=== PATIENT | male | born 1985 | race Caucasian/White ===

== ENCOUNTER 2020-04-27 16:30 | Outpatient (REF) | payer MEDICAID, SELFPAY | END 2020-04-27 16:31 | disposition home or self-care (01) | LOC: HO.LAB 16:30 | PROVIDERS: Visit Provider Internal Medicine | DX: Z20.828 Contact with and (suspected) exposure to other viral communicable diseases (principal) | CPT/HCPCS: C9803; U0003 ==

== ENCOUNTER 2021-01-21 14:00 | Outpatient (REF) | payer MEDICAID, SELFPAY | END 2021-01-21 14:01 | disposition home or self-care (01) | LOC: HO.HMGCLDS 14:00 | PROVIDERS: Visit Provider Internal Medicine | DX: Z20.822 Contact with and (suspected) exposure to COVID-19 (principal) | CPT/HCPCS: C9803; U0003; U0005 ==

== ENCOUNTER 2021-03-03 07:39 | Emergency (ER) | payer OTHER, MEDICAID, SELFPAY ==
--- NOTE | 2021-03-03 08:23 | ED.BACK ---
HPI - Back Pain/Injury General Chief Complaint: Extremity Problem Stated Complaint: back pain - work injury Time Seen by Provider: 03/03/21 08:10 Source: patient Mode of arrival: ambulatory Limitations: no limitations History of Present Illness HPI Narrative: 35 y/o male with no medial history presents to the ER with right middle back pain after he lifted a stove yesterday. He reports it dropping off the handtruck and he went to try to catch it and pulled the right side of his back. His boss sent him home and told him to come to the ER if no improvement in the pain. He reports pain is worse with movement and deep breaths, better with rest. He took something for pain his had but does not know the name of it. MD elicited complaint: back pain and back injury Onset (ago): day(s) (1) Timing: intermittent Severity: moderate Pain scale (0-10): 7 Similar Symptoms Previously: No Quality: aching and spasming Location: right lower back and right upper back Radiation: none Exacerbating factors: movement, deep breaths and coughing/sneezing Relieving factors: immobilization Context: while lifting and turning/twisting Associated symptoms: denies other symptoms Work related injury: Yes Related Data Previous Rx's Medication Instructions Recorded cyclobenzaprine 10 mg tablet 10 mg PO TID PRN #10 tab 03/03/21 ibuprofen 600 mg tablet 600 mg PO Q8H PRN #14 tab 03/03/21 lidocaine 5 % topical patch 1 patch TOPICAL DAILY #15 ea 03/03/21 (Lidoderm) Allergies Allergy/AdvReac Type Severity Reaction Status Date / Time No Known Allergies Allergy Unverified 02/27/20 18:53 [No Known Allergies*] Review of Systems Review of Systems: Constitutional: No Fever, No Chills Cardiovascular: No Chest Pain, No SOB Respiratory: No Cough, No Sputum Gastrointestinal: No Nausea, No Vomiting, No abdominal Pain Genitourinary: No Dysuria, No Urinary Frequency, No Hematuria Musculoskeletal: No joint pain, + Myalgias Skin: No Skin Lesions, No rash Neuro: No Weakness, No Numbness Heme/Lymph: No Bruising PMFSH Social History Social History Alcohol intake: never Patient Tobacco Use Status: Never used Tobacco Use of substances other than those prescribed or required for medical reasons: No Advance Directives: No Physical Exam Vital Signs: Vital Signs: Last Vital Signs Temp 97.9 F 03/03/21 08:24 Pulse 55 03/03/21 08:24 Resp 17 03/03/21 08:24 BP 116/79 03/03/21 08:24 Pulse Ox 100 03/03/21 08:24 Body Mass Index 22.8 Appearance: Alert. Oriented X3. No acute distress. HEENT: normal inspection Neck: Normal inspection. Neck supple. CVS: Normal heart rate and rhythm. Pulses normal. Respiratory: No respiratory distress. Breath sounds normal. Abdomen: Soft and nontender. +BS x4 Back/: normal inspection, normal ROM, tenderness and spasm of the right sided soft tissues with palpable spasm of the latissimus dorsi Skin: Skin warm and dry. Normal skin color. Normal skin turgor. No rashes. Extremities: No lower extremity edema. Neuro: Oriented X 3. No motor deficit. No sensory deficit. Course Course Course Narrative: 35 y/o male presenting with right sided back pain after lifting a stove. Exam and clinical presentation are consistent with muscle strain and spasm. will treat with NSAID, muscle relaxer and lidoderm. Stable for d/c home with supportive care. Critical Care Time Critical Care Time Critical Care Time: No Discharge Plan Discharge Clinical Impression: Strain of thoracic back region Patient Disposition: Home, Self-Care Instructions: Muscle Strain (ED), Lower Back Exercises (ED) Additional Instructions: No bending, lifting or twisting. Use ice several times per day for 20 minutes at a time for the next 48 hours and then change to heat. Take medications as prescribed to help with pain and discomfort. Follow up with your Primary Care Doctor this week. If your pain worsens, if you develop new numbness, tingling, weakness, loss of function or incontinence call 911 or come back to the ER right away for evaluation. Sin agacharse, levantar ni torcer. Use hielo varias veces al d?a shayna 20 minutos a la vez shayna las pr?ximas 48 horas y luego cambie a calor. [place] los medicamentos recetados para aliviar el dolor y la incomodidad. [place] un seguimiento con belle m?dico de atenci?n primaria esta semana. Si belle dolor empeora, si presenta entumecimiento, hormigueo, debilidad, p?rdida de funci?n o incontinencia nuevos, llame al 911 o regrese a la jacob de emergencias de inmediato para angel evaluaci?n. Prescriptions: New cyclobenzaprine 10 mg tablet 10 mg PO TID PRN (Reason: muscle spasm) Qty: 10 RF: 0 lidocaine [Lidoderm] 5 % adhesive patch,medicated 1 patch topical DAILY Qty: 15 RF: 0 ibuprofen 600 mg tablet 600 mg PO Q8H PRN (Reason: pain) Qty: 14 RF: 0 Stand Alone Forms: Work/School Release Interventions: ED Discharge Assessment Last Done: 03/03/21 08:36 Discharge Date/Time: 03/03/21 08:36 Print Language: [place] Islander
[2021-03-03 08:24] VITALS: BP 116/79; PULSE 55; RESP 17; TEMP 36.6; O2SAT 100; BMI 22.8
== END 2021-03-03 08:36 | disposition home or self-care (01) ==
PROVIDERS: Emergency Provider Emergency Medicine
DX: S29.012A Strain of muscle and tendon of back wall of thorax, initial encounter (principal); M62.830 Muscle spasm of back; X50.0XXA Overexertion from strenuous movement or load, initial encounter; X50.3XXA Overexertion from repetitive movements, initial encounter; X50.9XXA Other and unspecified overexertion or strenuous movements or postures, initial encounter; Y93.9 Activity, unspecified; Y92.9 Unspecified place or not applicable; Y99.9 Unspecified external cause status; Z79.899 Other long term (current) drug therapy
CPT/HCPCS: 99283

== ENCOUNTER → 2022-08-26 10:20 | Outpatient (BNVA) | payer OTHER, SELFPAY | PROVIDERS: Visit Provider Physician Assistant | DX: S00.83XA Contusion of other part of head, initial encounter (principal); S70.02XA Contusion of left hip, initial encounter; S80.02XA Contusion of left knee, initial encounter; S60.222A Contusion of left hand, initial encounter; W00.2XXA Other fall from one level to another due to ice and snow, initial encounter | CPT/HCPCS: 73130; 73564; 99204 ==

== ENCOUNTER → 2022-08-30 10:34 | Outpatient (BNVA) | payer OTHER, SELFPAY | PROVIDERS: Visit Provider Physician Assistant Medical | DX: S80.02XA Contusion of left knee, initial encounter (principal); S00.83XA Contusion of other part of head, initial encounter; W18.39XA Other fall on same level, initial encounter | CPT/HCPCS: 99213 ==

== ENCOUNTER 2023-06-20 15:20 | Outpatient (REF) | payer OTHER, SELFPAY ==
--- NOTE | ~2023-06-20 | XR_ITS ---
EXAMINATION: XR BILATERAL KNEES CLINICAL INFORMATION: Reason for Exam PAIN COMPARISON: Knee radiographs 08/26/2022 TECHNIQUE: 4 views of the bilateral knees FINDINGS: RIGHT KNEE: No acute fracture or dislocation. Joint spaces are maintained. No joint effusion. Soft tissues are unremarkable. LEFT KNEE: No acute fracture or dislocation. Joint spaces are maintained. Small exophytic bony protuberance noted along the lateral aspect of the distal femoral diaphysis projecting away from the joint space suggesting an osteochondroma, unchanged. No joint effusion. Soft tissues are unremarkable. XR/XR knee RT 4V IMPRESSION: RIGHT KNEE: No acute osseous abnormality. LEFT KNEE: Small exophytic bony protuberance noted along the lateral aspect of the distal femoral diaphysis projecting away from the joint space suggesting an osteochondroma, unchanged.
--- NOTE | ~2023-06-20 | XR_ITS ---
EXAMINATION: XR BILATERAL KNEES CLINICAL INFORMATION: Reason for Exam PAIN COMPARISON: Knee radiographs 08/26/2022 TECHNIQUE: 4 views of the bilateral knees FINDINGS: RIGHT KNEE: No acute fracture or dislocation. Joint spaces are maintained. No joint effusion. Soft tissues are unremarkable. LEFT KNEE: No acute fracture or dislocation. Joint spaces are maintained. Small exophytic bony protuberance noted along the lateral aspect of the distal femoral diaphysis projecting away from the joint space suggesting an osteochondroma, unchanged. No joint effusion. Soft tissues are unremarkable. XR/XR knee LT 4V IMPRESSION: RIGHT KNEE: No acute osseous abnormality. LEFT KNEE: Small exophytic bony protuberance noted along the lateral aspect of the distal femoral diaphysis projecting away from the joint space suggesting an osteochondroma, unchanged.
== END 2023-06-20 15:21 | disposition home or self-care (01) ==
LOC: HO.HHCX 15:20
PROVIDERS: Visit Provider Internal Medicine Geriatric Medicine
DX: M65.331 Trigger finger, right middle finger (principal); M25.562 Pain in left knee
CPT/HCPCS: 73564

== ENCOUNTER 2024-01-06 11:03 | Emergency (ER) | payer OTHER, SELFPAY ==
--- NOTE | ~2024-01-06 | XR_ITS ---
EXAMINATION: XR CERVICAL SPINE CLINICAL INFORMATION: Pain. No injury. COMPARISON: Cervical spine CT April 14, 2017 TECHNIQUE: 3 views of the cervical spine were obtained. FINDINGS: The cervical spine is visualized in its entirety. Alignment is within normal limits. Normal C1/2 articulation. Cervical vertebral body heights are maintained. Cervical disc spaces are well-maintained. No significant degenerative changes. No prevertebral soft tissue swelling. Visualized apices are well aerated. XR/XR cervical spine 3V IMPRESSION: Unremarkable radiographs of the cervical spine.
[2024-01-06 11:07] VITALS: BP 121/54; PULSE 53; RESP 18; TEMP 36.4; O2SAT 100; BMI 22.3
--- NOTE | 2024-01-06 11:07 | ED.NECK ---
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 He reports pain is worsened with head movement and arm movement. He took a dose of Flexeril 5 mg at home with continued pain prompting his ER visit. He denies associated headache, vision changes, back pain, shortness of breath, chest pain, numbness/tingling/weakness of the upper or lower extremities. Related Data Previous Rx's ?Medication ?Instructions ?Recorded cyclobenzaprine 10 mg tablet 10 mg PO BID PRN muscle spasm #20 08/26/22 tabs ibuprofen 800 mg tablet 800 mg PO TID pain swelling #60 08/26/22 tabs cyclobenzaprine 10 mg tablet 10 mg PO TID PRN muscle spasm #15 01/06/24 tabs naproxen 500 mg tablet 500 mg PO BID PRN pain #30 tabs 01/06/24 Allergies Allergy/AdvReac Type Severity Reaction Status Date / Time No Known Allergies Allergy Verified 01/06/24 11:09 [No Known Allergies*] Review of Systems Review of Systems: Yes all other systems are reviewed and are negative Constitutional: Constitutional: Reports no additional constitutional complaints, Denies body ache(s), Denies chills, Denies fever(s), Denies headache(s), Denies night sweats, Denies weakness and Denies weight loss Eyes: Eyes: Reports no additional eye complaints and Denies change in vision ENT: Reports system reviewed and no additional complaints, except as documented, Denies dizziness, Denies headache(s), Denies nasal congestion, Denies nasal discharge and Reports neck pain Cardiovascular: Cardiovascular: Reports no additional cardiovascular complaints, Denies chest pain, Denies leg edema and Denies dyspnea Respiratory: Respiratory: Reports no additional respiratory complaints, Denies cough and Denies dyspnea Gastrointestinal: Gastrointestinal: Reports no additional gastrointestinal complaints, Denies abdominal pain, Denies diarrhea, Denies nausea and Denies vomiting Genitourinary: Genitourinary: Denies urinary incontinence Musculoskeletal: Musculoskeletal: Reports no additional musculoskeletal complaints, Denies back pain, Denies arthralgias, Denies joint swelling, Reports neck pain, Denies numbness and Denies tingling Integumentary/Breasts: Skin/Breast: Reports system reviewed and no additional complaints, except as docu and Denies rash Neurologic: Reports system reviewed and no additional complaints, except as documented, Denies Abnormal speech present, Denies dizziness, Denies headache(s), Denies numbness, Denies tingling and Denies weakness PMFSH Past Medical History Attestation statement: The following information was validated with the patient. Source: old records reviewed and nursing notes reviewed Social History Social History Alcohol intake: never Patient Tobacco Use Status: Never used Tobacco Advance Directives: No Advance Directives Information Provided: No Do you have a plan to hurt others: No Plan Physical Exam Vital Signs: Vital Signs: Last Vital Signs Temp 97.3 F 01/06/24 15:30 Pulse 40 L 01/06/24 15:30 Resp 17 01/06/24 15:30 BP 113/69 01/06/24 15:30 Pulse Ox 100 01/06/24 15:30 O2 Del Method Room Air 01/06/24 15:30 BMI result Body Mass Index 22.3 Const: General: cooperative, healthy appearing, comfortable and no acute distress Orientation/consciousness: patient oriented x3 Limitations: no limitations HEENT: Head: Yes normal to inspection Ears: hearing grossly normal bilaterally General nose exam: Normal external nose present Face and sinus: Yes normal facial exam Mouth: Normal oral and palatal mucosa present Throat: Yes posterior oropharynx normal Eyes: General: appearance normal, both eyes and all related structures Pupils: Equal, round and reactive pupils present Neck: Other: There is tenderness the left trapezius and left paraspinal muscles with palpable muscle spasm. Pain is worsened with lateral rotation of the head as well as movement of the left upper extremity. There is no midline tenderness, step-offs or deformities of the cervical spine Neck: Yes normal visual inspection, Yes no lymphadenopathy and Yes no meningeal signs Chest: Chest palpation & inspection: normal inspection of the chest Resp: Effort & Inspection: normal respiratory effort Auscultation: clear to auscultation bilaterally Cardio: Rate: regular rate Rhythm: regular rhythm Peripheral pulses: Peripheral pulses 2+ throughout GI: Inspection: Yes normal to inspection Palpation (GI): Soft to palpation and nontender Auscultation: normal bowel sounds Back/Spine/Pelvis: Thoracic/Lumbar Spine: thoracic and lumbar spine normal to inspection Skin: General skin exam: no rashes or lesions noted Neuro: General: patient oriented x3, no meningeal signs, no focal motor deficits and normal sensation to monofilament Cranial nerves: Yes Equal, round and reactive pupils present Cognition (Neuro): normal cognition Speech: No Abnormal speech present Gait exam (Neuro): Normal gait present Motor exam (neuro): 5/5 motor strength present throughout Sensory Exam: Normal double simultaneous stimulation for sensation Extrem: General: Yes normal to inspection Course Course Course Narrative: This is a Rapid Medical Exam performed in triage by Tosha Camp PA-C. Full HPI, ROS and PE to be performed by primary ED provider. 38 year-old M w/no sig PMHx presenting to the ED c/o L sided neck pain x waking this morning. Took Flexeril w/o relief. denies SAPP, injury/fall PE: +torticollis w/+L paraspinal ttp. limited ROM 2/2 pain Plan: Pain control Medications Administered Discontinued Medications Generic Name Dose Route Start Last Admin Trade Name Freq PRN Reason Stop Dose Admin Ketorolac Tromethamine 30 mg 01/06/24 12:30 01/06/24 12:35 Ketorolac Tromethamine 30 Mg/Ml Vial IM 01/06/24 12:31 30 mg ONCE ONE Administration Medical Decision Making Medical Decision Making [facility] Narrative: 38-year-old male with no known medical history presents to the ER with waking with left-sided neck pain no injury or trauma that is known. He reports pain is worsened with head movement and arm movement. He took a dose of Flexeril 5 mg at home with continued pain prompting his ER visit. He denies associated headache, vision changes, back pain, shortness of breath, chest pain, numbness/tingling/weakness of the upper or lower extremities. There is tenderness the left trapezius and left paraspinal muscles with palpable muscle spasm. Pain is worsened with lateral rotation of the head as well as movement of the left upper extremity. There is no midline tenderness, step-offs or deformities of the cervical spine Normal neuro exam. No deficits or red flags. Exam is consistent with torticollis Will chest x-rays, provide analgesia Differential Diagnosis Differential Diagnoses: The differential diagnosis associated with the presentation includes Torticollis Low suspicion for cervical fracture, carotid artery dissection, epidural abscess, malignancy based on history of present illness and exam Admission/Observation Consideration of admission/observation: Escalation of care including admission/observation considered low suspicion for cervical fracture, carotid artery dissection, epidural abscess, malignancy based on history of present illness and exam requiring advanced imaging, urgent consultation, admission Independent Interpretation I performed an independent interpretation of an: Plain X-Ray Interpretation: I independently viewed the x-ray and agree with the radiology report Radiology Impression Discussion of test interpretation with radiology: I have reviewed the radiologist's reading. Radiologist Impression: [address] [address] XRay Report Signed Patient: Keshav Godfrey MR#: [id number] : 1985 Acct:[id number] Age/Sex: 38 / M ADM Date: 01/06/24 Loc: HO.ED Attending Dr: Ordering Physician: Carito Walden NP Date of Service: 01/06/24 Procedure(s): XR cervical spine 3V Accession Number(s): [id number] cc: Physician,Unknown ; Carito Walden NP~ EXAMINATION: XR CERVICAL SPINE CLINICAL INFORMATION: Pain. No injury. COMPARISON: Cervical spine CT April 14, 2017 TECHNIQUE: 3 views of the cervical spine were obtained. FINDINGS: The cervical spine is visualized in its entirety. Alignment is within normal limits. Normal C1/2 articulation. Cervical vertebral body heights are maintained. Cervical disc spaces are well-maintained. No significant degenerative changes. No prevertebral soft tissue swelling. Visualized apices are well aerated. XR/XR cervical spine 3V IMPRESSION: Unremarkable radiographs of the cervical spine. Tests considered The following testing was considered but not selected: low suspicion for cervical fracture, carotid artery dissection, epidural abscess, malignancy based on history of present illness and exam requiring advanced imaging Prescription Management I considered prescription management with: Pain Medication Discharge Plan Discharge Clinical Impression: Torticollis Patient Disposition: Home, Self-Care Instructions: Spasmodic Torticollis (ED) Additional Instructions: Heat to the area Gentle stretching No heavy lifting or bending Return to the emergency room for worsening symptoms. Please follow-up with the primary care doctor in 1 week for any continued symptoms Prescriptions: New naproxen 500 mg tablet 500 mg PO BID PRN (Reason: pain) Qty: 30 0RF cyclobenzaprine 10 mg tablet 10 mg PO TID PRN (Reason: muscle spasm) Qty: 15 0RF No Action ibuprofen 800 mg tablet 800 mg PO TID Qty: 60 0RF cyclobenzaprine 10 mg tablet 10 mg PO BID PRN (Reason: muscle spasm) Qty: 20 0RF Referrals: Physician,Unknown J [Primary Care Provider] - 1 week Stand Alone Forms: Work/School Release Interventions: ED Discharge Assessment Last Done: 01/06/24 15:30 Discharge Date/Time: 01/06/24 15:31 Print Language: Greenlandic
[2024-01-06] MEDS: Ketorolac Tromethamine 30 MG/ML VIAL IM (12:35)
[2024-01-06 14:56] VITALS: BP 113/69; PULSE 40; RESP 17; TEMP 36.3; O2SAT 100
[2024-01-06 15:30] VITALS: BP 113/69; PULSE 40; RESP 17; TEMP 36.3; O2SAT 100
== END 2024-01-06 15:31 | disposition home or self-care (01) ==
PROVIDERS: Emergency Provider Emergency Medicine
DX: M43.6 Torticollis (principal); M54.2 Cervicalgia
CPT/HCPCS: 72040; 96372; 99283; 99284; J1885

== ENCOUNTER 2024-02-23 13:43 | Outpatient (REF) | payer OTHER, SELFPAY ==
[2024-02-23 16:05] LABS: MANUAL DIFF FLAG NO
[2024-02-23 16:12] LABS: Basophils Absolute Auto 0.1 X10*3/uL (0.0-0.2); Basophils Percent Auto 0.9 % (0-2); Eosinophils Absolute Auto 0.6 X10*3/uL (0.0-0.4); Eosinophils Percent Auto 8.8 % (0-4); Hematocrit 36.5 % (42.0-52.0); Hemoglobin 12.4 g/dl (14.0-18.0); Imm Gran Abs Auto 0.02 X10*3/uL (0.00-0.03); Imm Gran Pct Auto 0.3 % (0.0-0.4); Lymphocytes Absolute Auto 2.2 X10*3/uL (1.2-4.9); Lymphocytes Percent Auto 33.8 % (20-40); Mean Corpuscular Hemoglobin 30.2 pg (27.0-33.0); Mean Corpuscular Volume 88.8 fL (80.0-98.0); Mean Platelet Volume 11.4 fL (9.4-12.4); Monocytes Absolute Auto 0.6 X10*3/uL (0.1-1.2); Monocytes Percent Auto 9.8 % (2-11); Neutrophils Percent Auto 46.4 % (45-73); Platelet Count 174 X10*3/uL (160-400); Red Blood Count 4.11 X10*6/uL (4.60-5.80); Red Cell Distribution Width 12.8 % (11.0-16.0); White Blood Count 6.5 X10*3/uL (4.8-10.8)
[2024-02-23 17:52] LABS: Alanine Aminotransferase 19 U/L (0-40); Albumin Level 4.2 g/dL (3.5-5.0); Alkaline Phosphatase 57 U/L (39-117); Anion Gap 14 (12-20); Aspartate Amino Transferase 23 U/L (5-37); Bilirubin Total 1.8 mg/dL (0.0-1.0); Blood Urea Nitrogen 17 mg/dL (9-16); Calcium 9.4 mg/dL (8.4-10.2); Carbon Dioxide 26 mmol/L (22-29); Chloride 105 mmol/L (96-108); Estimated Glomerular Filt Rate > 60; Glucose Random 106 mg/dL (60-115); Sodium 141 mmol/L (135-145); Total Protein 7.2 g/dL (6.5-8.0)
[2024-02-26 08:32] LABS: HIV AB/AG Nonreactive (Nonreactive); HIV Num 1 0.05 S/CO (0.00-0.99); ~HepC Num1 0.09 S/CO (0.00-0.79); ~Hepatitis C Antibody Nonreactive (Nonreactive)
== END 2024-02-23 13:44 | disposition home or self-care (01) ==
LOC: HO.HHCL 13:43
PROVIDERS: Visit Provider Internal Medicine Geriatric Medicine
DX: R63.4 Abnormal weight loss (principal)
CPT/HCPCS: 36415; 80053; 84443; 85025; 86803; 87389

== ENCOUNTER 2024-07-25 09:26 | Outpatient (REF) | payer OTHER, SELFPAY ==
--- OUTSIDE RECORDS SUMMARY | 2024-07-25 09:49 | XMS_ITS | Clinical Summary ---
Author Organization [employer] Address [address] [facility] [address] [place] [address] Care Team Providers Care Activities Officer Name Role Phone Name, Sang POPE Primary Care Provider [phone] Allergies No known active allergies Medications Diclofenac Sodium 1 % gel Apply twice a day to affected joint 50 g 2 06/20/2023 Active naproxen (Naprosyn) 500 MG tablet Take 1 tablet (500 mg) by mouth 2 times daily. 60 tablet 3 10/06/2023 Active Multiple Vitamin (multivitamin) capsuleIndicati ons:Mild anemia Take 1 capsule by mouth Once per day. 30 capsule 11 04/09/2024 04/09/20 25 Active acetaminophen (Tylenol 8 Hour) 650 MG ER tablet Take 1 tablet (650 mg) by mouth every 8 (eight) hours if needed for mild pain. Do not crush, chew, or split. 40 tablet 1 07/25/2024 08/25/19 25 Active ondansetron (Zofran) 4 MG tablet Take 1 tablet (4 mg) by mouth every 8 (eight) hours if needed for nausea or vomiting for up to 7 days. 20 tablet 07/25/2024 08/01/19 25 Active Active Problems No known active problems Encounters Date Type Department Care Team Description 07/25/2024 8:40 AM EST Office Visit [facility] [address], [place] [id number] Alix Galindo DO Generalized abdominal pain (Primary Dx) 07/25/2024 Travel from Last 3 Months Immunizations Name Administration Dates Next Due Tdap 04/30/2018 Social History Tobacco Use Types Packs/Day Years Used Date Smoking Tobacco: Never Smokeless Tobacco: Never Tobacco Cessation:Counseling Given: Not Answered Alcohol Use Standard Drinks/Week Comments Never 0 (1 standard drink = 0.6 oz pur e alcohol) Depression Answer Date Recorded Patient Health Questionnaire-9 Score 0 01/29/2024 Patient Health Questionnaire-9 Score 0 01/29/2024 Last PHQ-9: Questionnaire Data Not on file 0 01/29/2024 Housing Stability Answer Date Recorded What is your housing situation today? I have brielle lutz 01/29/[address] you li ve. Do you have problems with any of the following? None of the above 01/29/2024 Food Insecurity Answer Date Recorded Within the past 12 months, y ou worried that your food would run out before you got money to buy more: Never True 01/29/2024 Within the past 12 months,th e food you bought just didn't last and you didn't have enough money to get more: Never True Transportation Answer Date Recorded In the past 12 months, has l ack of transportation kept you from medical appts, meetings, work or from getting things needed for daily living? No 01/29/2024 Utilities Answer Date Recorded In the past 12 months, has t he electric, gas, oil or water company threatened to shut off services in your home? No 01/29/2024 Depression Answer Date Recorded Patient Health Questionnaire-2 Score 0 01/29/2024 Internet Access Answer Date Recorded Internet Access Q1 No 02/12/2024 Internet Access Q2 I do not want or need it 07/2023 Sex and Gender Information Value Date Recorded Sex Assigned at Male 04/11/2022 10:34 AM EDT Legal Sex Male 10:34 AM EDT Gender Identity Male 04/11/2022 10:34 AM EDT Sexual Orientation Straight 04/11/2022 10 :34 AM EDT Last Filed Vital Signs Vital Sign Reading Time Taken Comments Blood Pressure 108/64 07/25/2024 8:46 AM EST Pulse 55 07/25/2024 8:46 AM EST Temperature 36.4 ??C (97.6 ??F) 07/25/2024 8:46 AM ES T Respiratory Rate 18 07/25/2024 8:46 AM EST Oxygen Saturation 98% 07/25/2024 8:46 AM EST Inhaled Oxygen Concentration - - Weight 63.7 kg (140 lb 6.4 oz) 07/25/2024 8:46 A M EST Height 172.7 cm (5' 8 ) 04/09/2024 3:57 PM EDT Body Mass Index 21.35 04/09/2024 3:57 PM EDT Plan of Treatment Health Maintenance Due Date Last Done Comments Lipid Panel 1987 Family Planning (PISQ) 2002 Hepatitis B Vaccines (1 of 3 - 19+ 3-dose series) 2006 COVID-19 Vaccine (2023-2 5 season) 2024 11/16/2020, 10/19/2020 Influenza Vaccine (#1) 2024 Alcohol/Substance Use Screening 01/28/2025 01/29/2024 Depression Screening 01/28/2025 01/29/2024, 01/29/2024 SDOH Screening 01/28/2025 01/29/2024 Tobacco Screening 04/09/2025 04/09/2024 DTaP/Tdap/Td Vaccines (2 - T d or Tdap) 04/30/2028 04/30/2018 Zoster Vaccines (1 of 2) 2037 RSV Patients and Patients Aged 60 years or older (1 - 1-dose 75+ series) 2062 HIV Screening Completed 02/23/2024 Hepatitis C Screening Completed 02/23/2024 HIB Vaccines Aged Out No longer eligi ble based on patient's age to complete this topic HPV Vaccines Aged Out No longer eligi ble based on patient's age to complete this topic Hepatitis A Vaccines Aged Out No long er eligible based on patient's age to complete this topic IPV Vaccines Aged Out No longer eligi ble based on patient's age to complete this topic Meningococcal Vaccine Aged Out No travis michael eligible based on patient's age to complete this topic Pneumococcal Vaccine: Pediatrics (0 to 5 Years) and At-Risk Patients (6 to 49) Years) Aged Out No longer eligible b ased on patient's age to complete this topic RSV under 20 months Aged Out No longe r eligible based on patient's age to complete this topic Rotavirus Vaccines Aged Out No longer eligible based on patient's age to complete this topic Procedures Procedure Name Priority Date/Time Associated Diagnosis Comments POCT INFLUENZA B (ID NOW RAPID MOLECULAR) Routine 07/25/2024 9:38 AM EST Generalized abdominal pain POCT INFLUENZA A (ID NOW RAPID MOLECULAR) Routine 07/25/2024 9:38 AM EST Generalized abdominal pain POCT RAPID COVID ANTIGEN Routine 07/25/2024 9:38 AM EST Generalized abdominal pain HEPATITIS C AB W/REFL TO HCV RNA, QN, PCR Routine 02/23/2024 1:45 PM EDT Weight loss, non-intentional HIV 1/2 ANTIGEN/ANTIBODY, FOURTH GENERATION W/RFL Routine 02/23/2024 1:45 PM EDT Weight loss, non-intentional from Last 3 Months or Most Recently Relevant to Health Maintenance Results * Influenza B (ID NOW Rapid Molecular) (07/25/2024 9:38 AM EST) Influenza B Negative Negative, Indeterminate [facility] Swab 07/25/2024 9:38 AM EST Alix Galindo DO POINT OF CARE TEST ENTER/ARNIE T ORDERABLES Final Result Performing Organization Address [facility] Co de Phone Number [facility] [address] [place] [phone] * Influenza A (ID NOW Rapid Molecular) (07/25/2024 9:38 AM EST) Influenza A Negative Negative, Indeterminate [facility] Swab 07/25/2024 9:38 AM EST Alix Galindo DO POINT OF CARE TEST ENTER/ARNIE T ORDERABLES Final Result Performing Organization Address [facility]/ZIP Co de Phone Number [facility] [address] [place] [phone] * POCT Rapid COVID Ag (07/25/2024 9:38 AM EST) Pathologist [facility] Rapid COVID Ag Negative [facility] Swab 07/25/2024 9:38 AM EST Alix Galindo DO POINT OF CARE TEST ENTER/ARNIE T ORDERABLES Final Result Performing Organization Address City/[facility]/ZIP Co de Phone Number [facility] [address] [place] [phone] * Hepatitis C Antibody with Reflex to HCV, RNA, Quantitative, Real-Time PCR (02/23/2024 1:45 PM EDT) [facility] Hepatitis C Antibody Nonreactive Nonreactive [facility] Comment:Antibodies to HCV no t detected; does not exclude early acuteHCV infection. Blood Venous blood specimen / Unknown 02/23/2024 1:45 PM EDT 02/23/2024 3:58 PM EDT Sang Viveros MD LAB BLOOD ORDERABLES Final Resul t Performing Organization Address [facility] Co de Phone Number [facility] [address] [place] [phone] * HIV-1/2 Antigen and Antibodies, Fourth Generation, with Reflexes (02/23/2024 1:45 PM EDT) [facility] HIV AB/AG Nonreactive Nonreactive [facility] Comment:HIV-1 p24 Ag and/or HIV-1/HIV-2 Ab not detected.A test result that is nonreactive does not exclude thepossibility of exposure to or infection with HIV-1 and/orHIV-2. Nonreactive results in this assay for individualswith prior exposure to HIV-1 and/or HIV-2 may be due toantigen and antibody levels that are below the limit ofdetection of this assay.The [employer] HIV Ag/Ab Combo assay result andsupplemental assay results should be interpreted inconjunction with the patient's clinical presentation,history and other laboratory results. If the results areinconsistent with clinical evidence, additional testing issuggested to confirm the result. Blood Venous blood specimen / Unknown 02/23/2024 1:45 PM EDT 02/23/2024 3:58 PM EDT Sang Viveros MD LAB BLOOD ORDERABLES Final Resul t [facility] [address] [place] [phone] from Last 3 Months or Most Recently Relevant to Health Maintenance Insurance [facility] Care Teams Activities Officer Relationship Specialty Start Date End Date Name, MD Sang [address] [place] [phone] PCP - General Family Medicine 05/22/19
--- OUTSIDE RECORDS SUMMARY | 2024-07-25 09:49 | XMS_ITS | Encounter Summary ---
Author Organization [employer] Address [address] [facility] [address] [place] [address] Care Team Providers Care Outside Sales Inspector Name Role Phone Name, Sang POPE Primary Care Provider [phone] Encounter Details Date Type Department Care Team (Latest Contact Info) Description 07/25/2024 Travel Social History Tobacco Use Types Packs/Day Years Used Date Smoking Tobacco: Never Smokeless Tobacco: Never Alcohol Use Standard Drinks/Week Comments Never 0 [...] Orientation Straight 04/11/2022 10 :34 AM EDT documented as of this encounter Plan of Treatment Not on file documented as of this encounter Visit Diagnoses Not on filedocumented in this encounter Additional Health Concerns Assessment Noted Time PHQ-9 Depression Total Score: 0 01/29/20 24 3:36 PM EDT documented as of this encounter Care Teams Outside Sales Inspector Relationship Specialty Start Date End Date Name, MD Sang [address] [place] [address] PCP - General Family Medicine 05/22/19 documented as of this encounter
--- OUTSIDE RECORDS SUMMARY | 2024-07-25 09:49 | XMS_ITS | Encounter Summary ---
Author Organization [employer] Address [address] [facility] [address] [place] [address] Care Team Providers Care Electronic Warfare Specialist Name Role Phone Name, Sang POPE Primary Care Provider [phone] Reason for Referral * Imaging (STAT) - Pending Review Specialty Diagnoses / Procedures Referred By Contac t Referred To Contact Radiology Diagnoses Generalized abdominal pain Procedures CT Abdomen Pelvis w/ and w/o Contrast Alix Galindo DO [address] [place] [address] Phone: tel: fax: [address] Phone: tel: fax: Referral ID Status Reason Start Date Expiration Date V isits Requested Visits Authorized [id number] Pending Review 07/25/2024 07/25/2025 1 1 Reason for Visit * Reason Comments Diarrhea Vomiting Generalized Body Aches Encounter Details Date Type Department Care Team (Late st Contact Info) Description 07/25/2024 8:40 AM EST Office Visit [facility] [address] [place] [address] Alix Galindo DO [address] [place] [address] Generalized abdominal pain (Primary Dx) Social History Tobacco Use Types Packs/Day Years [...] AM EDT documented as of this encounter Last Filed Vital Signs Vital Sign Reading [...] oz) 07/25/2024 8:46 A M EST Height - - Body Mass Index 21.35 04/09/2024 3:57 PM EDT documented in this encounter Progress Notes * Alix Mateo, DO - 07/25/2024 8:40 AM EST SUBJECTIVE: Keshav Krause is a 39 y.o. year old male who presents for sick visit . He comes to [place] c/o abd pain and diarrhea since yesterday. He stayed home from work yesterday thinking that he would feel better today but feels worse. He has had nausea but no vomiting. He feels chills but has not had any fevers. He has muscle aches and joint pains. He has had 4 episodes of diarrhea, one this morning. No BRBPR. He had not taken any meds for his pain. His is at home in bed with the same sx. 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 used: Yes Diarrhea Quality: Watery Severity: Moderate Onset quality: Sudden Duration: 2 days Timing: Intermittent Progression: Unchanged Relieved by: None tried Associated symptoms: abdominal pain, arthralgias, chills and myalgias Associated symptoms: no recent cough, no fever, no headaches, no URI and no vomiting Abdominal pain: Location: Generalized Quality: cramping and sharp Severity: Severe Duration: 2 days Timing: Constant Progression: Worsening Risk factors: sick contacts Risk factors: no recent antibiotic use and no travel to endemic areas Review of Systems Constitutional: Positive for chills. Negative for fatigue and fever. HENT: Negative for congestion. Eyes: Negative for visual disturbance. Respiratory: Negative for cough and shortness of breath. Cardiovascular: Negative for chest pain, palpitations and leg swelling. Gastrointestinal: Positive for abdominal pain and nausea. Negative for blood in stool, rectal pain and vomiting. Musculoskeletal: Positive for arthralgias and myalgias. Skin: Negative for rash. Neurological: Negative for dizziness and headaches. There is no problem list on file for this patient. No Known Allergies OBJECTIVE Vitals: 07/25/24 0846 BP: 108/64 BP Location: Left arm Patient Position: Sitting BP Cuff Size: Adult Pulse: 55 Resp: 18 Temp: 97.6 ??F (36.4 ??C) TempSrc: Temporal SpO2: 98% Weight: 140 lb 6.4 oz (63.7 kg) Physical Exam Constitutional: General: He is not in acute distress. Appearance: Normal appearance. Cardiovascular: Rate and Rhythm: Normal rate and regular rhythm. Heart sounds: Normal heart sounds. No murmur heard. Pulmonary: Effort: Pulmonary effort is normal. Breath sounds: Normal breath sounds. No wheezing or rhonchi. Abdominal: General: Bowel sounds are normal. Palpations: Abdomen is soft. There is no mass. Tenderness: There is generalized abdominal tenderness. There is guarding. There is no rebound. Comments: Severe diffuse abdominal TTP Neurological: General: No focal deficit present. Mental Status: He is alert. Psychiatric: Mood and Affect: Mood normal. Office Visit on 07/25/2024 Component Date Value Ref Range Status Rapid COVID Ag 07/25/2024 Negative Final Influenza A 07/25/2024 Negative Negative, Indeterminate Final Influenza B 07/25/2024 Negative Negative, Indeterminate Final ASSESSMENT/PLAN Diagnoses and all orders for this visit: Generalized abdominal pain With severe TTP on exam, ? Colitis -given severity of his pain and tenderness on exam, recommended that he go to ED for further eval and mgmt but he refused, pt signed refusal of treatment form -he agrees to check basic labs -referred for STAT CT abd/pelvis -trial zofran prn -advised pt go to ED if pain worsens or develops fevers or vomiting - CBC auto differential; Future - Basic Metabolic Panel; Future - Hepatic Function Panel; Future - Amylase; Future - Lipase; Future - Sed Rate by Modified Westergren; Future - C-reactive Protein; Future - CT Abdomen Pelvis w/ and w/o Contrast; Future - POCT Rapid COVID Ag - Influenza A (ID NOW Rapid Molecular) - Influenza B (ID NOW Rapid Molecular) F/U with PCP as scheduled or sooner prn Current Outpatient Medications: acetaminophen (Tylenol 8 Hour) 650 MG ER tablet, Take 1 tablet (650 mg) by mouth every 8 (eight) hours if needed for mild pain. Do not crush, chew, or split., Disp: 40 tablet, Rfl: 1 Diclofenac Sodium 1 % gel, Apply twice a day to affected joint, Disp: 50 g, Rfl: 2 Multiple Vitamin (multivitamin) capsule, Take 1 capsule by mouth Once per day., Disp: 30 capsule, Rfl: 11 naproxen (Naprosyn) 500 MG tablet, Take 1 tablet (500 mg) by mouth 2 times daily., Disp: 60 tablet,Rfl: 3 ondansetron (Zofran) 4 MG tablet, Take 1 tablet (4 mg) by mouth every 8 (eight) hours if needed fornausea or vomiting for up to 7 days., Disp: 20 tablet, Rfl: 0 documented in this encounter Plan of Treatment Scheduled Orders Name Type Priority Associated Diagnoses Orde r Schedule CBC auto differential Lab Routine Generalized abdominal pain Expected: 07/25/2024 (Approximate), Expires: 07/25/2025 Basic Metabolic Panel Lab Routine Generalized abdominal pain Expected: 07/25/2024 (Approximate), Expires: 07/25/2025 Hepatic Function Panel Lab Routine Generalized abdominal pain Expected: 07/25/2024 (Approximate), Expires: 07/25/2025 Amylase Lab Routine Generalized abdominal pain Expected: 07/25/2024 (Approximate), Expires: 07/25/2025 Lipase Lab Routine Generalized abdominal pain Expected: 07/25/2024, Expires: 07/25/2025 Sed Rate by Modified Westergren Lab Routine Generalized abdominal pain Expected: 07/25/2024, Expires: 07/25/2025 C-reactive Protein Lab Routine Generalized abdominal pain Expected: 07/25/2024 (Approximate), Expires: 07/25/2025 CT Abdomen Pelvis w/ and w/o Contrast Imaging STAT Generalized abdominal pain Expected: 07/25/2024, Expires: 07/25/2025 documented as of this encounter Procedures Procedure Name Priority Date/Time Associated Diagnosis Comments POCT INFLUENZA B (ID NOW RAPID MOLECULAR) Routine 07/25/2024 9:38 AM EST Generalized abdominal pain POCT INFLUENZA A (ID NOW RAPID MOLECULAR) Routine 07/25/2024 9:38 AM EST Generalized abdominal pain POCT RAPID COVID ANTIGEN Routine 07/25/2024 9:38 AM EST Generalized abdominal pain documented in this encounter Results * Influenza B (ID NOW Rapid Molecular) (07/25/2024 9:38 AM EST) Pathologist [facility] Influenza B Negative Negative, Indeterminate [facility] Swab 07/25/2024 9:38 AM EST Alix Galindo DO POINT OF CARE TEST ENTER/ARNIE T ORDERABLES Final Result Performing Organization Address [facility] Co de Phone Number [facility] [address] [place] [phone] * Influenza A (ID NOW Rapid Molecular) (07/25/2024 9:38 AM EST) Pathologist [facility] Influenza A Negative Negative, Indeterminate [facility] Swab 07/25/2024 9:38 AM EST Alix Galindo DO POINT OF CARE TEST ENTER/ARNIE T ORDERABLES Final Result Performing Organization Address [facility] Co de Phone Number [facility] [address] [place] [phone] * POCT Rapid COVID Ag (07/25/2024 9:38 AM EST) Pathologist [facility] Rapid COVID Ag Negative [facility] Swab 07/25/2024 9:38 AM EST Alix Galindo DO POINT OF CARE TEST ENTER/ARNIE T ORDERABLES Final Result Performing Organization Address [facility] de Phone Number [facility] [address] [place] [phone] documented in this encounter Visit Diagnoses Diagnosis Generalized abdominal pain- Primary Abdominal pain, generalized documented in this encounter Additional Health Concerns Assessment Noted Time PHQ-9 Depression Total Score: 0 01/29/20 24 3:36 PM EDT documented as of this encounter Care Teams Electronic Warfare Specialist Relationship Specialty Start Date End Date Name, MD Sang [address] [place] [phone] PCP - General Family Medicine 05/22/19 documented as of this encounter
[2024-07-25 11:30] LABS: MANUAL DIFF FLAG NO
[2024-07-25 11:35] LABS: Basophils Percent Auto 0.4 % (0-2); Eosinophils Absolute Auto 0.3 X10*3/uL (0.0-0.4); Eosinophils Percent Auto 5.9 % (0-4); Hematocrit 38.1 % (42.0-52.0); Hemoglobin 12.9 g/dl (14.0-18.0); Imm Gran Abs Auto 0.01 X10*3/uL (0.00-0.03); Imm Gran Pct Auto 0.2 % (0.0-0.4); Lymphocytes Absolute Auto 1.5 X10*3/uL (1.2-4.9); Lymphocytes Percent Auto 31.9 % (20-40); Mean Corpuscular HGB Conc 33.9 g/dl (31.0-36.0); Mean Corpuscular Hemoglobin 29.7 pg (27.0-33.0); Mean Corpuscular Volume 87.8 fL (80.0-98.0); Mean Platelet Volume 11.5 fL (9.4-12.4); Monocytes Absolute Auto 0.7 X10*3/uL (0.1-1.2); Monocytes Percent Auto 15.8 % (2-11); Neutrophils Absolute Auto 2.1 x10*3/uL (2.0-8.3); Neutrophils Percent Auto 45.8 % (45-73); Platelet Count 177 X10*3/uL (160-400); Red Blood Count 4.34 X10*6/uL (4.60-5.80); Red Cell Distribution Width 13.2 % (11.0-16.0); White Blood Count 4.6 X10*3/uL (4.8-10.8)
[2024-07-25 11:57] LABS: Alanine Aminotransferase 15 U/L (0-40); Albumin Level 4.3 g/dL (3.5-5.0); Amylase 68 U/L (28-100); Anion Gap 10 (12-20); Aspartate Amino Transferase 22 U/L (5-37); Bilirubin Direct 0.5 mg/dL (0.0-0.5); Bilirubin Total 2.5 mg/dL (0.0-1.0); Blood Urea Nitrogen 13 mg/dL (9-16); C Reactive Protein 1.27 mg/dL (< or = 0.50); Calcium 9.3 mg/dL (8.4-10.2); Carbon Dioxide 28 mmol/L (22-29); Chloride 106 mmol/L (96-108); Estimated Glomerular Filt Rate > 60; Glucose Random 97 mg/dL (60-115); Iron 25 mcg/dL (45-160); Lipase 10 U/L (8-78); Percent Iron Saturation 11 % (15-50); Potassium 4.5 mmol/L (3.3-5.1); Sodium 139 mmol/L (135-145); Total Iron Binding Capacity 223 mcg/dL (228-428); Total Protein 7.6 g/dL (6.5-8.0); Unsaturated Iron Binding 198 ug/dL
[2024-07-25 12:08] LABS: Alkaline Phosphatase 53 U/L (39-117)
[2024-07-25 12:16] LABS: Erythrocyte Sedimentation Rate 5 MM/HR (0-15)
[2024-07-25 12:18] LABS: Folate 13.7 ng/mL (> or = 4.0); Vitamin B12 655 pg/mL (200-900)
== END 2024-07-25 09:27 | disposition home or self-care (01) ==
LOC: HO.HHCL 09:26
PROVIDERS: Internal Medicine Geriatric Medicine; Visit Provider Family Medicine
DX: D64.9 Anemia, unspecified (principal); R10.84 Generalized abdominal pain
CPT/HCPCS: 36415; 80048; 80076; 82150; 82607; 82746; 83540; 83690; 85025; 85652; 86140